=== PATIENT | female | born 1980 | race Caucasian/White ===

== ENCOUNTER 2024-04-21 21:36 | Emergency (ER) | payer MEDICARE, MEDICAID, SELFPAY ==
[2024-04-21 21:37] VITALS: BP 136/70; PULSE 88; RESP 18; TEMP 36.6; O2SAT 100
--- NOTE | 2024-04-21 22:27 | PD.EDRME ---
Rapid Medical Screening Exam RME Arrival date/time: 04/21/24 21:36 43F with history of psych presents to ED wanting a safe and free place to stay. Patient denies SI/HI. Chief Complaint: General Adult/Misc Complain Vital signs: Vital Signs Temperature 98 F 04/21/24 21:37 Pulse Rate 88 04/21/24 21:37 Respiratory Rate 18 04/21/24 21:37 Blood Pressure 136/70 H 04/21/24 21:37 Pulse Oximetry (%) 100 04/21/24 21:37 Oxygen Delivery Method Room Air 04/21/24 21:37
--- NOTE | 2024-04-22 00:07 | PC.NURSE ---
CALLED FOR REGISTRATION , NO ANSWER AT ER LOBBY OR OUTSIDE ER.
--- NOTE | 2024-04-22 00:17 | PC.NURSE ---
no answer at er lobby or outside er.
--- NOTE | 2024-04-22 00:24 | PC.NURSE ---
no answer at er lobby and outside er.
== END 2024-04-22 00:24 | disposition left against medical advice (07) ==
LOC: SERX 04-22 00:46
PROVIDERS: Emergency Provider Emergency Medicine
DX: Z76.89 Persons encountering health services in other specified circumstances (principal); Z53.29 Procedure and treatment not carried out because of patient's decision for other reasons
CPT/HCPCS: 99281

== ENCOUNTER 2024-06-01 06:17 | Emergency (ER) | payer MEDICARE, MEDICAID, SELFPAY ==
[2024-06-01 06:17] VITALS: BP 122/79; PULSE 100; PULSE 97; RESP 18; RESP 20; TEMP 36.9; O2SAT 97; O2SAT 98; BMI 29.5
--- NOTE | 2024-06-01 06:44 | EDNOTE_ITS ---
ED General RME/HPI General Chief complaint: Suicidal Stated complaint: SI / VOL / HEARING VOICES Time Seen by Provider: 06/01/24 06:44 Arrival date/time: 06/01/24 06:17 RME / HPI RME / HPI narrative: 43 y/o female with existing psychiatric history who presents with suicidal ideation. Patient has no plans. Patient denies AH/VH/HI she has no other complaints. Social: Homeless Related Data Allergies Allergy/AdvReac Type Severity Reaction Status Date / Time No Known Allergies Allergy Verified 03/22/24 00:03 Review of Systems Review of Systems Systems Reviewed: All systems reviewed, normal except as documented ED Exam Narrative Physical exam: GENERAL APPEARANCE: AxOx4, generally well-appearing, no acute distress. HEENT: NC, AT. MMM. EOMI, clear conjunctiva, oropharynx clear. NECK: Supple without lymphadenopathy. No stiffness or restricted ROM. HEART: Normal rate and regular rhythm, normal S1/S1, no m/r/g LUNGS: CTAB, moving air well. No crackles or wheezes are heard. ABDOMEN: Soft, nontender, nondistended with good bowel sounds heard. BACK: No midline C/T/L spine pain or deformity, No CVAT, no obvious deformity. EXTREMITIES: Without cyanosis, clubbing or edema. MUSCULOSKELETAL: FROM of all major joints, no chest tenderness NEUROLOGICAL: Grossly nonfocal. Alert and oriented, moving all 4 extremities. CN not formally tested but appear grossly intact. Observed to ambulate with normal gait. Skin: Warm and dry without any rash. Course Course Course Narrative: Patient is medically cleared for crisis team assessment and disposition. Patient [facility] from [facility] prior to arrival to room. Quality Measures none Orders Category Date Time Status Alcohol, Urine Stat Lab 06/01/24 06:27 Ordered Drug Screen,Urine Stat Lab 06/01/24 06:27 Ordered HCG Qualitative,Urine Stat Lab 06/01/24 06:27 Ordered Vital Signs Vital signs: Vital Signs Temperature 98.4 F 06/01/24 06:17 Pulse Rate 100 06/01/24 06:17 Respiratory Rate 20 06/01/24 06:17 Blood Pressure 122/79 06/01/24 06:17 Pulse Oximetry (%) 97 06/01/24 06:17 Oxygen Delivery Method Room Air 06/01/24 06:17 [facility] Patient data External records reviewed:: [facility] previous records (Previous ER visit for psychiatric issues) Clinical information provided by:: patient Social determinants that could affect healthcare access:: housing Patient has the following chronic illnesses:: psych How is presenting disease/condition affected by chronic disease/condition?: caused by Evaluation data The following diagnostics were reviewed and interpreted by me:: lab results Lab and/or radiology exams considered but not ordered:: none Interpretation Summary: Eloped Medications Medications considered but not ordered:: None Medication administrations:: None Consultations Consultation(s) initiated? (list below): No Diagnosis Differential Diagnosis ED Complaint MDM: Suicidal ideation, depression, psychosis Most likely diagnosis given after review of the tests above:: Patient eloped Admission Indicated Admission indicated?: not indicated Explain why admission is indicated or not indicated:: Per psychiatric assessment disposition Admission Request Was there a request for admission?: No Disposition Plan Disposition Plan: other (specify) (Eloped) Medical Decision Making MDM Narrative MDM Narrative: Ms. Gomez has suicidal ideation without distinct plan. Initially voluntary to speak with crisis however upon transfer to her ER room she had eloped. Differential Diagnosis Differential Diagnosis: Suicidal ideation, depression, psychosis Discharge Plan Plan Patient Disposition: Elopement Prescriptions/Referrals Referrals: Temporary Provider,ED [Primary Care Provider] - In 1 week Problem List Clinical Impression: Suicidal ideation Patient/Caregiver Discharge Instructions Print Language: Slovak
--- NOTE | 2024-06-01 06:50 | PC.NURSE ---
I WAS GOING TO PT PT IN A ROOM, BUT SUDDENLY SHE YELLED IM JUST LEAVING.
--- NOTE | 2024-06-01 06:52 | PC.NURSE ---
PATIENT ELOPED THE ER REFUSED TO BE SEEN AND WALKED OUT OF THE ER LOBBY.
--- NOTE | 2024-06-01 06:54 | PC.NURSE ---
LIST OF RESOURCE FOR COMMUNITY GIVEN TO PT.
== END 2024-06-01 06:52 | disposition left against medical advice (07) ==
LOC: SERX 07:11
PROVIDERS: Emergency Provider Emergency Medicine
DX: R45.851 Suicidal ideations (principal); Z59.00 Homelessness unspecified; Z53.29 Procedure and treatment not carried out because of patient's decision for other reasons
CPT/HCPCS: 80307; 80320; 81025; 99281; G0480

== ENCOUNTER 2024-06-13 21:40 | Emergency (ER) | payer MEDICARE, SELFPAY ==
[2024-06-13 21:51] VITALS: BP 132/79; PULSE 90; RESP 18; TEMP 37.1; O2SAT 100; BMI 26.6
[2024-06-13 21:53] VITALS: PULSE 97; RESP 18; O2SAT 98
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
[2024-06-13 22:37] LABS: HCG Qualitative,Urine Negative
[2024-06-13 23:03] LABS: Alcohol, Urine Negative (Negative); Amphetamine/Methamp Scrn,U Negative (Negative); Barbiturate Screen,Urine Negative (Negative); Benzodiazepines Screen,Urine Negative (Negative); Benzoylecgonine Screen, Ur Negative (Negative); Fentanyl Screen,Urine Negative (Negative); Opiate Screen,Urine Negative (Negative); THC Screen,Urine Negative (Negative)
[2024-06-14 06:13] VITALS: BP 125/78; PULSE 85; RESP 16; TEMP 37; O2SAT 98
--- NOTE | 2024-06-14 06:36 | PD.EDADDENDU ---
Emergency Room Addendum <Nayeli Vasquez - Last Filed: 06/14/24 06:37> Addendum Narrative: 0600: Care assumed from Dr. Alves, the previous shift emergency physician. Past medical, surgical, social and family history reviewed. Vitals and home medications reviewed. I will assume the care of the patient at this time, pending mental health evaluation and final disposition. Please refer to the emergency department record for history and examination from initial visit.? EMS notes reviewed by me. Nursing notes reviewed by me. Vital signs reviewed by me. [facility] records reviewed by me. Patient was last evaluated here on 06/01/2024 for suicidal ideation. <Lázaro Eisenberg MD - Last Filed: 06/14/24 16:35> Addendum Narrative: 0600: Care assumed from Dr. Alves, the previous shift emergency physician. Past medical, surgical, social and family history reviewed. Vitals and home medications reviewed. I will assume the care of the patient at this time, pending mental health evaluation and final disposition. Please refer to the emergency department record for history and examination from initial visit.? EMS notes reviewed by me. Nursing notes reviewed by me. Vital signs reviewed by me. [facility] records reviewed by me. Patient was last evaluated here on 06/01/2024 for suicidal ideation. U tox is negative. test is negative. Urine alcohol is negative. 4:33 PM, Augustine, our director of social media marketing/mental health marketing sales consultant has decided to uphold the patient's 5150. 6 PM, the patient is stable still pending 5150 placement plan, the patient was signed out to Diagnosis: Acute psychosis
--- NOTE | 2024-06-14 07:37 | PC.NURSE ---
report given from casino shift manager nurse Rosalind rn. pt is on 5150 hold for harm to self. pt made statement that she wanted to harm self and is waiting for crisis for eval this am. doctor suzie ordered meal tray for this am. pt sleeping at this time and is responsive to verbal. sitter at bedside.
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
[2024-06-14 08:23] VITALS: BP 114/74; PULSE 76; RESP 18; TEMP 37; O2SAT 98
[2024-06-14 11:34] VITALS: BP 119/78; PULSE 99; RESP 18; TEMP 36.7; O2SAT 95
[2024-06-14 14:37] VITALS: BP 122/89; PULSE 82; RESP 19; TEMP 36.8; O2SAT 97
[2024-06-14 16:34] VITALS: BP 120/87; PULSE 84; RESP 18; TEMP 36.8; O2SAT 98
[2024-06-14 17:52] VITALS: BP 116/78; PULSE 79; RESP 18; TEMP 36.6; O2SAT 97
--- NOTE | 2024-06-14 18:14 | PD.EDADDENDU ---
Emergency Room Addendum Addendum Narrative: 1800: Care assumed from Dr. Eisenberg, the previous shift emergency physician. Past medical, surgical, social and family history reviewed. Vitals and home medications reviewed. Results and treatment plan discussed. I will assume the care of the patient at this time and will follow the patient, pending 5150 placement. Please refer to the emergency department record for history and examination from initial visit. Patient was placed in observation for treatment and monitoring of psychiatric symptoms, at 1800 06/14/2024. Symptoms consist of suicidal ideation and depression. Treatment plan includes psychiatric consult, reassessments, and possible placement into psychiatric facility. The patient had access and provided personal hygiene, shower, food, water, and daily medications. 0600: Care signed out to Dr. Garcia (emergency physician). Past medical, surgical, social and family history reviewed. Vitals and home medications reviewed. Results and treatment plan discussed. They will assume the care of the patient at this time and will follow the patient, pending 5150 placement. At this time, observation has ended.
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
--- NOTE | 2024-06-15 06:46 | PD.EDADDENDU ---
Emergency Room Addendum Addendum Narrative: [address] Alves, the previous shift emergency physician. Past medical, surgical, social and family history reviewed. Vitals and home medications reviewed. Results and treatment plan discussed. The patient was placed in ED observation care at 0600 06/15/2024, pending [facility] facility placement. Please refer to the emergency department record for history and examination.? While in ED observation the pt will have access to water, food, and personal hygiene. If the pt takes home medication(s), they will be continued in ED observation. Patient has been accepted by Dr. Sinclair at [facility]. 1125: EMS here to transfer patient. She has remained stable through ED course. ED observation completed at this time.
[2024-06-15 07:03] VITALS: BP 125/85; PULSE 75; RESP 15; TEMP 36.8; O2SAT 97
--- NOTE | 2024-06-15 07:49 | PC.CC ---
Addendum entered by Augustine Johnson II 06/15/24 09:42: 0828-Call from [facility] with Beni Alvarez for RN report. 0842-Call from [facility] with Beni Alvarez-pt has been accepted by Dr. Sinclair, Unit 2. Requested ETA 1300. PCS/and FS uploaded to [employer]. 0911-Call to [facility], transport ETA set for 1130. Pt packet created and attached to pts chart. Original Note: Pt Jessica Gomez is a 43 yr old female brought to ED by [employer] on 5150 for GD. Pt evaluated by ASW and hold upheld. At this time pt is pending placement in [facility] facility. Updated packet will be sent to [facility] facilities.
--- NOTE | 2024-06-15 08:32 | PC.NURSE ---
Received a call from Marcus from [facility] to get report he statss he will report to [facility] acceptance and will return the call with update on acceptance
== END 2024-06-15 11:25 ==
PROVIDERS: Emergency Medicine; Emergency Provider Emergency Medicine
DX: F23 Brief psychotic disorder (principal)
CPT/HCPCS: 80307; 80320; 81025; 96127; 99285; G0480

== ENCOUNTER 2024-06-24 15:14 | Emergency (ER) | payer MEDICARE, SELFPAY ==
--- NOTE | 2024-06-24 16:00 | PC.NURSE ---
PATIENT STATED TO [employer] AND STAFF THAT SHE WANTED TO BE SEEN AT ANOTHER HOSPITAL BECAUSE NO ONE WAS SEEING HER HERE AND SHE HAS BEEN WAITING FOR HOUR . PATENT SIGNED AMA FORM AND LEFT.
== END 2024-06-24 16:00 | disposition left against medical advice (07) ==
LOC: SERX 16:33
PROVIDERS: Emergency Provider Emergency Medicine
DX: Z53.21 Procedure and treatment not carried out due to patient leaving prior to being seen by health care provider (principal)

== ENCOUNTER 2024-12-17 23:07 | Emergency (ER) | payer MEDICARE, OTHER, SELFPAY ==
[2024-12-17 23:08] VITALS: BP 128/85; PULSE 94; RESP 18; TEMP 36.8; O2SAT 95
[2024-12-17 23:09] VITALS: BMI 23.6
--- NOTE | 2024-12-18 00:19 | PD.EDPSYCH ---
ED Psych RME/HPI General Chief Complaint: Psychiatric Symptoms Stated Complaint: suicidal thoughts Time Seen by Provider: 12/18/24 00:14 Arrival date/time: 12/17/24 23:07 RME / HPI RME / HPI Narrative: This section includes all my notes and documentations, including HPI, PE, and ED course. Radu Garcia MD HPI: 43 y/o female with Hx of Schizophrenia and Homelessness BIBA with suicidal ideation. Patient states she is very, very suicidal and doesn't want to exist and feels that she cannot take care of herself. Denies visual and auditory hallucinations. No thoughts of hurting other people. No medications long time. No other complaints. ROS: All negative except as documented in HPI. Physical Exam: General:? Alert.? Flat affect. Patient stares persistently and inappropriately. Eyes:? Conjunctivae and lids clear.? EOMI.? PERRL. ENT:? No nasal congestion.? Neck:? Supple.? Heart:? RRR.? Lungs:? No respiratory distress.? Good air movement.? No rhonchi, wheezing, rales.?? Abdomen:? Soft and nontender.? Skin:? Warm and dry.?? Neuro:? Alert and oriented X 1.? Cranial Nerves II-XII grossly intact.? No peripheral motor deficits. I reviewed EMS notes. Blood tests unremarkable. Waiting for urine specimen. At this point, diagnoses include: Suicidal ideation Acute psychosis Patient placed on 1798 hold. Entered order for evaluation by our ED Master Sonar Technician. At 6 AM on 12/18/24, the care of the patient was transferred to Dr. Scott. Radu Garcia MD Related Data Home Medications ?Medication ?Instructions ?Recorded ?Confirmed Unobtainable 06/15/24 06/15/24 Allergies Allergy/AdvReac Type Severity Reaction Status Date / Time No Known Allergies Allergy Verified 12/17/24 23:15 Past Medical History Past Medical History PSYCHO/SOCIAL: Positive Psychiatric Problems and Schizophrenia Social History HOUSING: Homeless ED Exam Narrative Physical exam: Refer to [facility] Course Quality Measures none Orders Category Date Time Status 1799 Psychiatric Hold NOW Care 12/18/24 00:15 Ordered Referral Psych Eval Stat Cons 12/18/24 00:15 Active Acetaminophen Stat Lab 12/18/24 00:23 Completed Alcohol, Blood Medical Stat Lab 12/18/24 00:23 Completed Bilirubin,Direct Stat Lab 12/18/24 00:23 Completed CBC Stat Lab 12/18/24 00:23 Completed CMP [Comprehensive Metabolic Panel] Stat Lab 12/18/24 00:23 Completed Drug Screen,Urine Stat Lab 12/18/24 00:16 Ordered Free T4 (Free Thyroxine) Stat Lab 12/18/24 00:23 Completed HCG,Qualitative Serum Stat Lab 12/18/24 00:23 Completed Magnesium Stat Lab 12/18/24 00:23 Completed Salicylate Stat Lab 12/18/24 00:23 Completed TSH [Thyroid Stimulating Hormone] Stat Lab 12/18/24 00:23 Completed UA, C/S IF [Urinalysis, C/S if Indicated] Stat Lab 12/18/24 00:16 Ordered Vital Signs Vital signs: Vital Signs Temperature 98.3 F 12/17/24 23:08 Pulse Rate 94 12/17/24 23:08 Respiratory Rate 18 12/17/24 23:08 Blood Pressure 128/85 H 12/17/24 23:08 Pulse Oximetry (%) 95 12/17/24 23:08 Oxygen Delivery Method Room Air 12/17/24 23:08 Psych MDM Narrative MDM Narrative:: Scribe Attestation: IYuliet, am scribing for and in the presence of Dr. Garcia. Provider Notation: Although this document has been carefully reviewed, there may still be some phonetic and other typographical errors.? These errors are purely grammatical due to imperfections in the software program and should not be construed in any way to? compromise the substance of the patient's medical care during this visit. 43 y/o female with Hx of Schizophrenia and Homelessness BIBA with suicidal ideation. Patient states she is very, very suicidal and doesn't want to exist and feels that she cannot take care of herself. Denies visual and auditory hallucinations. No thoughts of hurting other people. No medications long time. No other complaints. Patient data External records reviewed:: [facility] previous records (Reviewed prior ED records from 06/15/24. Patient was seen for Acute psychosis.) and EMS form Clinical information provided by:: patient and EMS Social determinants that could affect healthcare access:: housing (Homeless, Schizophrenia) Patient has the following chronic illnesses:: Schizophrenia How is presenting disease/condition affected by chronic disease/condition?: exacerbated by Evaluation data The following diagnostics were reviewed and interpreted by me:: lab results Lab and/or radiology exams considered but not ordered:: None Interpretation Summary: Blood tests unremarkable. Waiting for urine specimen. Medications / Prescriptions Medications or Prescriptions considered but not ordered:: None Medication administrations:: None Consultations Consultation(s) initiated? (list below): No Diagnosis Psych Differential Diagnosis: acute psychosis, chronic schizophrenia, suicidal ideation, bipolar disorder, depression, drug-induced psychotic disorder and acute anxiety Most likely diagnosis given after review of the tests above:: Suicidal ideation and acute psychosis Admission Indicated Admission indicated?: not indicated Explain why admission is indicated or not indicated:: No psychiatric service available here at this facility. Admission Request Was there a request for admission?: No Disposition Plan Disposition Plan: other (specify) (At 6 AM on 12/18/24, the care of the patient was transferred to Dr. Scott. ) Discharge Plan Prescriptions/Referrals Prescriptions/Med Rec: No Action Unobtainable Referrals: No Primary/Family,Physician [Primary Care Provider] - In 1 week Problem List Clinical Impression: Suicidal ideation, Acute psychosis Patient/Caregiver Discharge Instructions Print Language: Khmer
[2024-12-18 00:55] LABS: Basophils # (Auto) 0.0 Thou/mm3 (0.0-0.2); Basophils % (Auto) 0 % (0-2.5); Eosinophils # (Auto) 0.2 Thou/mm3 (0.0-0.5); Eosinophils % (Auto) 3 % (0-10); Hematocrit 36.7 % (36.0-46.0); Hemoglobin 12.5 g/dL (12.0-16.0); Immature Granulocytes Auto 0.02 Thou/mm3 (0.00-0.00); Lymphocytes # (Auto) 2.1 Thou/mm3 (1.0-4.8); Lymphocytes % (Auto) 30 % (10-50); Mean Corpuscular HGB Conc 34.1 g/dl (31.0-37.0); Mean Corpuscular Hemoglobin 30.5 pg (25.0-35.0); Mean Corpuscular Volume 90 fL (80-100); Monocytes # (Auto) 0.8 Thou/mm3 (0.0-0.8); Monocytes % (Auto) 12 % (0-12); Neutrophils # (Auto) 3.8 Thou/mm3 (1.8-7.7); Neutrophils % (Auto) 55 % (37-80); Nucleated Red Blood Cell # 0.00 Thou/mm3 (0.00-0.00); Nucleated Red Blood Cell % 0 /100 WBC (0); Platelet Count 328 Thou/mm3 (140-440); RDW Standard Deviation 42.8 fL (36.4-46.3); Red Blood Count 4.10 Miln/mm3 (4.00-5.20); White Blood Count 6.9 Thou/mm3 (3.6-11.0)
[2024-12-18 01:01] VITALS: BP 120/74; PULSE 76; RESP 18; TEMP 37; O2SAT 99
[2024-12-18 01:06] LABS: HCG,Qualitative Serum Negative
[2024-12-18 01:11] LABS: Acetaminophen < 2.0 mcg/mL (10.0-20.0); Alanine Aminotransferase 12 U/L (10-49); Albumin, Serum 4.1 gm/dL (3.5-5.0); Albumin/Globulin Ratio 1.3 (1.2-2.2); Alcohol, Blood Medical < 3.0 mg/dL (0-10.0); Alkaline Phosphatase 77 U/L (46-116); Anion Gap 10 (7-16); Aspartate Amino Transferase 19 U/L (0-34); BUN/Creatinine Ratio 10 Ratio (12-20); Bilirubin,Direct 0.2 mg/dL (0.0-0.3); Bilirubin,Total 0.7 mg/dL (0.3-1.2); Blood Urea Nitrogen 7 mg/dL (9-23); Calcium 8.8 mg/dL (8.3-10.6); Calcium (Corrected) 8.8 mg/dL (8.5-10.1); Carbon Dioxide 23.1 mMol/L (20.0-31.0); Chloride 106 mMol/L (98-107); Creatinine (Component) 0.7 mg/dL (0.6-1.3); Estimated Creatinine Clearance 108.3 mL/min (>60); Free T4 (Free Thyroxine) 1.37 ng/dL (0.89-1.76); Globulin 3.2 gm/dL (2.3-3.5); Glucose 116 mg/dL (74-106); Magnesium 1.6 mg/dL (1.6-2.6); Osmolality,Calculated 276 (275-295); Potassium 3.8 mMol/L (3.4-5.1); Salicylate < 3.0 mg/dL; Sodium 139 mMol/L (136-145); Thyroid Stimulating Hormone 7.38 uIU/mL (0.55-4.78); Total Protein 7.3 gm/dL (5.7-8.2); eGFR > 60 See Note
[2024-12-18 06:09] VITALS: BP 118/82; PULSE 79; RESP 17; TEMP 36.3; O2SAT 99
--- NOTE | 2024-12-18 06:23 | PD.EDADDENDU ---
Emergency Room Addendum Addendum Narrative: 0600: Care assumed from Dr. Garcia, the previous shift emergency physician. Past medical, surgical, social and family history reviewed. Vitals and home medications reviewed. I will assume the care of the patient at this time, pending mental health evaluation. Please refer to the emergency department record for history and examination from initial visit.? The patient was placed in ED observation care at 12/18/2024 at 0600 hours. The patient was placed in ED observation care pending mental health evaluation. The patients past medical history, social history, and family history were reviewed. The plan of care will include serial examinations. While in ED observation the patient will have access to water, food, and personal hygiene. If the patient takes home medication(s), they will be continued in ED observation. Physical exam by me shows patient under no acute distress at this time. 0837: Patient is medically cleared for psychiatric evaluation. 1145: Mental health cleared the patient. Safety plan in place. 1200: Patient discharged. ED observation care ended at 12/18/2024 at 1200 hours. Diagnoses: -Suicidal ideation -Acute psychosis -Homelessness
[2024-12-18 06:33] LABS: Collection Type, Urine Clean Catch
[2024-12-18 07:30] VITALS: BP 106/72; PULSE 84; RESP 17; TEMP 36.5; O2SAT 99
[2024-12-18 07:31] LABS: Bilirubin,Urine Negative (Negative); Blood,Urine Negative (Negative); Clarity,Urine Clear (Clear/Hazy); Color,Urine Yellow (Lt Yel-Yel); Culture Indicated,Urine Not Indicated; Glucose, Urine Negative (Negative); Ketones,Urine Negative (Negative); Leukocyte Esterase,Urine Positive (Negative); Nitrite,Urine Negative (Negative); PH,Urine 6.5 (5.0-7.0); Protein,Urine Negative (Neg - Trace); RBC,Urine 2 /hpf (0-3); Specific Gravity,Urine 1.027 (1.001-1.035); Squamous Epithelial Cell,Urine 3 /hpf (0-5); Urobilinogen,Urine 2.0 mg/dL (0.0-1.0); WBC,Urine 2 /hpf (0-5)
[2024-12-18 07:42] LABS: Amphetamine/Methamp Scrn,U Negative (Negative); Barbiturate Screen,Urine Negative (Negative); Benzodiazepines Screen,Urine Negative (Negative); Benzoylecgonine Screen, Ur Negative (Negative); Fentanyl Screen,Urine Negative (Negative); Opiate Screen,Urine Negative (Negative); THC Screen,Urine Negative (Negative)
--- NOTE | 2024-12-18 11:20 | PC.NURSE ---
PT GOT OUT BED AND CHANGED INTO HER CLOTHING AND STATED, I AM LEAVING, THE DYNAMOMETER TESTER ENGINE GIRL CLEARED ME, AND I ANT WAITING FOR ANY DISCHARGE PAPER WORK, THAT GIRL GAVE ME ALL THE RESONANCES I NEED. PT WAS MADE AWARE THAT SHE WILL BE DISCHARGE SOON, BUT STILL REFUSED TO WAIT AND WALK OUT. DR. MENDEZ MADE AWARE
--- NOTE | 2024-12-18 12:28 | PC.CC ---
This is a 23-year-old, , male who presented to the ED on 01/08/2024 on a 5150 hold for danger to self by [place] [employer] ([employer]). Per Officer Surya, patient was placed on hold due to intentional overdose of medication. ASW-Emma Britton met with patient [id number] to complete assessment. ASW introduced self, role, and reason for assessment. ASW disclosed limits of confidentiality as well. Patient appeared alert and oriented to self, place, and situation. Patient was pleasant; her mood was calm. Patient?s thought process was linear and organized. No signs of delusions, paranoid or AVH. Pt reported that she was BIBA, as she had called them because of pain in her legs. Pt reported that she feels a lot of pain in her legs so bad that she made the statement, I wish I could just . However, pt strongly denied that she truly meant that she actually wants to . Pt reports she is homeless and lives in the community. Pt reports she knows how to reach out for help when need be. Pt admitted to h/o SI in 2023 and in the beginning of 2024, but strongly denies this today. ASW asked pt if she is willing to safety plan, which would include reaching out or scheduling a MH appointment and pt agreed. Pt reports her PCP is at [facility] and reports she is open to MH services. ASW staff with [employer], Director Enrique Ibrahim and it was advised to move forward with a safety plan. ASW informed ER provider and he also agreed to the safety plan. RN is aware. ASW provided community resources such as the cooling center flyer, mental health agencies in the [facility] and a community resource list specifically to the [facility]. Pt was receptive.
== END 2024-12-18 12:22 | disposition home or self-care (01) ==
PROVIDERS: Emergency Medicine; Emergency Provider Family Medicine
DX: R45.851 Suicidal ideations (principal); F20.9 Schizophrenia, unspecified; Z59.00 Homelessness unspecified
CPT/HCPCS: 36415; 80053; 80307; 80320; 80329; 81001; 82248; 83735; 84439; 84443; 84703; 85025; 96127; 99283; G0480

== ENCOUNTER 2025-01-20 23:28 | Emergency (ER) | payer MEDICARE, OTHER, SELFPAY ==
[2025-01-20 23:37] VITALS: BMI 23.6
[2025-01-20 23:38] VITALS: BP 100/71; PULSE 107; RESP 18; TEMP 36.4; O2SAT 100; BMI 23.6
--- NOTE | 2025-01-20 23:51 | EKG_ITS ---
[facility] Test Date: 2025-01-20 Pat Name: YAKOV FARMER Department: Room: - Gender: Female Operator Weapon Locating Radar: : 1980 Requested By: Radu Brewster Order Number: [id number] Reading MD: Radu Brewster Measurements Intervals [place] Rate: 121 P: 62 AR: 139 QRS: -3 QRSD: 88 T: 47 QT: 338 QTc: 481 Interpretive Statements SINUS TACHYCARDIA POSSIBLE RIGHT VENTRICULAR CONDUCTION DELAY [RSR (QR) IN V1/V2] MODERATE VOLTAGE CRITERIA FOR LVH, CONSIDER NORMAL VARIANT [MEETS CRITERIA IN ONE OF: R(aVL), S(V1), R(V5), R(V5/V6)+S(V1)] MODERATE ST DEPRESSION [0.05+ mV ST DEPRESSION] No previous ECG available for comparison /store/S0/[id number].pdf
--- NOTE | 2025-01-20 23:51 | PD.EDMEDCL ---
ED Medical Clearance RME/HPI General Chief complaint: Medical Clearance Stated complaint: MEDICAL CLEARANCE Time Seen by Provider: 01/20/25 23:50 Arrival date/time: 01/20/25 23:28 RME / HPI RME / HPI Narrative: See [facility] for Dr. Garcia's HPI Documentation. Related Information Home Medications ?Medication ?Instructions ?Recorded ?Confirmed Unobtainable 06/15/24 06/15/24 Allergies Allergy/AdvReac Type Severity Reaction Status Date / Time No Known Allergies Allergy Verified 01/20/25 23:38 Review of Systems Review of Systems Systems Reviewed: All systems reviewed, normal except as documented Past Medical History Past Medical History PSYCHO/SOCIAL: Positive Psychiatric Problems and Schizophrenia ED Exam Narrative Physical exam: See [facility] for Dr. Garcia's Physical Exam Documentation. Course Quality Measures none Orders Category Date Time Status EKG (ED ONLY) *Do not use* NOW Care 01/20/25 23:51 Completed EKG (ED Only) Stat Exams 01/20/25 23:51 Draft Metoprolol Succinate Xl [Toprol Xl] Med 01/21/25 00:05 Discontinued 75 mg PO X1 ONE Vital Signs Vital signs: Vital Signs Temperature 97.6 F 01/20/25 23:38 Pulse Rate 107 H 01/20/25 23:38 Respiratory Rate 18 01/20/25 23:38 Blood Pressure 100/71 01/20/25 23:38 Pulse Oximetry (%) 100 01/20/25 23:38 Oxygen Delivery Method Room Air 01/20/25 23:38 Medical Clearance [facility] Narrative [facility] Narrative:: Scribe Attestation: I, Yuliet Escoto, am scribing for and in the presence of Dr. Garcia. This section includes all my notes and documentations, including HPI, PE, and ED course. 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 No other complaints. ROS: All negative except as documented in HPI. Physical Exam: General: Alert and oriented. No acute distress when remaining still. Eyes: Conjunctivae and lids clear. PERRL. EOMI. ENT: No nasal congestion. Neck: Supple. Heart: RRR. Lungs: No respiratory distress. Good air movement. No rhonchi, wheezing, rales. Abdomen: Soft and nontender. Skin: Warm and dry. Neuro: Alert and oriented X 3. CN 2-12 grossly normal. No peripheral motor deficits. I reviewed all diagnostic test results: My interpretation of the EKG is: Sinus tachycardia (121 bpm) with nonspecific ST-T changes. At this point, diagnoses include: Medical Clearance for Incarceration. Treatment here included: oral Toprol 75 mg. Based on my best medical judgment, made decision to medical clear the patient for longterm and no further evaluation or treatment indicated at this time. Patient understands and agrees to the discharge instructions customized and printed, see below. Discharge Instructions from Dr. Garcia printed for you: 1. After evaluation, your EKG and BP are normal here. 2. You are medically cleared for longterm. 3. See a private doctor on 01/24/2025 or whenever you are released for recheck. 4. Seek immediate medical care with any concerns. Radu Garcia MD Patient data External records reviewed:: [facility] previous records (Reviewed prior ED records from 12/18/24. Patient was seen for Acute psychosis.) Clinical information provided by:: patient and law enforcement Social determinants that could affect healthcare access:: mental health (Schizophrenia) Patient has the following chronic illnesses:: Schizophrenia How is presenting disease/condition affected by chronic disease/condition?: exacerbated by Evaluation data The following diagnostics were reviewed and interpreted by me:: EKG tracing(s) (My interpretation of the EKG is: Sinus tachycardia (121 bpm) with nonspecific ST-T changes. Radu Garcia MD) Lab and/or radiology exams considered but not ordered:: None Interpretation Summary: My interpretation of the EKG is: Sinus tachycardia (121 bpm) with nonspecific ST-T changes. Medications / Prescriptions Medications or Prescriptions considered but not ordered:: None Medication administrations:: Medication Administration History Discontinued Medications Metoprolol Succinate (Metoprolol Succinate Xl 25 Mg Tabcr) 75 mg PO X1 ONE Stop: 01/21/25 00:06 Last Admin: 01/21/25 00:23 Dose: Not Given Documented By: EE Non-Admin Reason: Patient Refused Toprol 75 mg Consultations Consultation(s) initiated? (list below): No Diagnosis Medical Clearance Differential Diagnosis: other (Anxiety Disorder, Hypertensive Urgency vs Emergency) Most likely diagnosis given after review of the tests above:: Medical Clearance for incarceration Admission Indicated Admission indicated?: not indicated Explain why admission is indicated or not indicated:: With no condition needing emergent intervention, admission was not indicated. Admission Request Was there a request for admission?: No Disposition Plan Disposition Plan: other (specify) (Discharge to [facility] Discharge Plan Plan Patient Disposition: Snf/Court/Law Prescriptions/Referrals Prescriptions/Med Rec: No Action Unobtainable Problem List Clinical Impression: Medical clearance for incarceration Patient/Caregiver Discharge Instructions Discharge Activity: activity as tolerated Education Materials: ED Hypertension, To Be Confirmed Additional Instructions: Discharge Instructions from Dr. Garcia printed for you: 1. After evaluation, your EKG and BP are normal here. 2. You are medically cleared for longterm. 3. See a private doctor on 01/24/2025 or whenever you are released for recheck. 4. Seek immediate medical care with any concerns. Print Language: Kazakh Stand Alone Forms: [employer] Award Info., Patient Portal Info Letter
[2025-01-21 00:07] VITALS: BP 135/85; PULSE 125
--- NOTE | 2025-01-21 00:23 | PC.NURSE ---
pt refused to take medication stating i need help but not that kind of help . educated pt on reason why medication was being given, but pt still refused to take medication. md rush informed.
== END 2025-01-21 00:26 ==
LOC: SERX 01-21 00:54
PROVIDERS: Emergency Provider Emergency Medicine
DX: Z02.89 Encounter for other administrative examinations (principal); R03.0 Elevated blood-pressure reading, without diagnosis of hypertension; R00.0 Tachycardia, unspecified; F20.9 Schizophrenia, unspecified; Z65.3 Problems related to other legal circumstances
CPT/HCPCS: 93005; 99282; A9270